=== PATIENT | male | born 1955 ===

== ENCOUNTER 2022-01-09 11:05 | Inpatient (IN) | payer MEDICARE, OTHER ==
[~2022-01-09] VITALS: Ht 172.7 cm; Wt 55.8 kg
[2022-01-09] MEDS ORDERED: SODIUM CHLORIDE 0.9% 1,000 ML IV ONE (11:45)
[2022-01-09 12:12] LABS: BASOPHILS % (AUTO) 0.2 % (0.0-2.0); EOSINOPHILS % (AUTO) 0 % (1.0-6.0); HEMOGLOBIN 18.7 g/dL (13.5-17.5); LYMPHOCYTES # (AUTO) 0.3 K/uL (1.0-4.8); LYMPHOCYTES % (AUTO) 2.3 % (22.0-44.0); MEAN CORPUSCULAR HEMOGLOBIN 30.1 pg (26.0-34.0); MEAN CORPUSCULAR HGB CONC 31.6 G/dL (31.0-37.0); MEAN CORPUSCULAR VOLUME 95 fL (80-100); MONOCYTES # (AUTO) 0.4 K/uL (0.1-1.0); MONOCYTES % (AUTO) 3.3 % (2.0-9.0); NEUTROPHILS # (AUTO) 11.3 K/uL (1.8-7.7); PLATELET COUNT (AUTO) 132 K/uL (150-450); RED CELL DISTRIBUTION WIDTH 15.8 % (11.5-14.5)
[2022-01-09 12:23] LABS: INR 1.4 (0.9-1.1); PROTHROMBIN TIME 14.9 SEC (9.4-11.6)
[2022-01-09 12:24] LABS: ANION GAP 27 mmol/L (8-16); CALCIUM, TOTAL 10.4 mg/dL (8.8-10.5); CARBON DIOXIDE 21 mmol/L (22-29); CHLORIDE 133 mmol/L (98-107); CREATININE 8.81 mg/dL (0.60-1.30); GLOMERULAR FILTR. RATE CALC 5 mL/min (>60); GLUCOSE,RANDOM 231 mg/dL (70-110); POTASSIUM 5.2 mmol/L (3.5-5.1)
[2022-01-09 12:34] LABS: AMMONIA 70 umol/L (11-32)
[2022-01-09 12:46] LABS: ALANINE AMINOTRANSFERASE 29 U/L (12-78); ALBUMIN 4.6 g/dL (3.4-5.0); ALKALINE PHOSPHATASE 101 U/L (46-116); ASPARTATE AMINOTRANSFERASE 37 U/L (15-37); BILIRUBIN,TOTAL 0.9 mg/dL (0.1-1.0); CREATINE KINASE, TOTAL ONLY 455 U/L (39-308); TOTAL PROTEIN, SERUM 9.9 g/dL (6.4-8.2)
[2022-01-09 12:50] LABS: HEMATOCRIT 59.1 % (41-53); NEUTROPHILS % (AUTO) 94.2 % (40.0-70.0)
[2022-01-09 12:54] LABS: SODIUM SERUM 181 mmol/L (136-145)
[2022-01-09 12:55] LABS: UREA NITROGEN, BLOOD 277 mg/dL (7-18)
[2022-01-09 12:57] LABS: LACTIC ACID 4.9 mmol/L (0.4-2.0)
[2022-01-09] MEDS ORDERED: SODIUM CHLORIDE 0.9% 500 ML IV ONE (13:00)
[2022-01-09 14:12] LABS: APPEARANCE,URINE CLEAR (CLEAR); BILIRUBIN,URINE NEGATIVE (NEGATIVE); GLUCOSE, URINE (UA) NEGATIVE (NEGATIVE); KETONES,URINE NEGATIVE (NEGATIVE); LEUKOCYTE ESTERASE ,URINE NEGATIVE (NEGATIVE); NITRATE,URINE NEGATIVE (NEGATIVE); OCCULT BLOOD,URINE NEGATIVE (NEGATIVE); PROTEIN,URINE 30-70 mg/dL (NEGATIVE); SPECIFIC GRAVITIY, URINE 1.022 (1.003-1.030); UROBILINOGEN,URINE <=1.0 mg/dL (<=1.0)
[2022-01-09] MEDS ORDERED: DEXTROSE 5%-WATER 1,000 ML IV ONE (14:30)
[2022-01-09 14:33] LABS: AMPHET/METH SCREEN,URINE NEGATIVE (NEGATIVE); BARBITURATE SCREEN, URINE NEGATIVE (NEGATIVE); BENZODIAZEPINES SCREEN,URINE NEGATIVE (NEGATIVE); CANNABINOID SCREEN,URINE NEGATIVE (NEGATIVE); COCAINE SCREEN,URINE NEGATIVE (NEGATIVE); METHADONE SCREEN, URINE NEGATIVE (NEGATIVE); OPIATE SCREEN,URINE NEGATIVE (NEGATIVE); PHENCYCLIDINE SCREEN,URINE NEGATIVE (NEGATIVE)
[2022-01-09] MEDS ORDERED: BISACODYL 10 MG RECTAL RECTAL SUPPOSITORY PR PRN (15:00)
[2022-01-09] MEDS ORDERED: ONDANSETRON HCL 4 MG/2 ML VIAL IVP PRN (15:00)
[2022-01-09 16:32] LABS: CALCIUM, TOTAL 9.9 mg/dL (8.8-10.5); CREATININE 8.4 mg/dL (0.60-1.30); POTASSIUM 5.7 mmol/L (3.5-5.1)
[2022-01-09] MEDS: MVI, ADULT NO.1 WITH VIT K 10 ML in DEXTROSE 5%-WATER 1,000 ML IV SCH ×2 (19:24)
[2022-01-09 19:46] LABS: GLUCOMETER DEV NAME(LOC) ERT.5; GLUCOSE,POINT OF CARE 209 MG/DL (70-110)
[2022-01-09 20:45] LABS: MAGNESIUM 4.9 mg/dL (1.80-2.40)
[2022-01-09] MEDS: HEPARIN SODIUM,PORCINE 5,000 UNITS/ML VIAL SQ SCH (20:48)
[2022-01-09 21:03] LABS: COVID AG,FIA SOURCE NASAL SWAB
[2022-01-09 21:05] LABS: PHOSPHORUS 10.6 mg/dL (2.5-4.9)
[2022-01-10] VITALS (8 sets, daily range): BP systolic 78–189; BP diastolic 49–121
[2022-01-10] MEDS: NITROGLYCERIN 2% (1 GM=INCH) PACKET TP SCH ×3 (02:59→16:00)
[2022-01-10] MEDS: MVI, ADULT NO.1 WITH VIT K 10 ML in DEXTROSE 5%-WATER 1,000 ML IV SCH ×6 (04:26→20:48)
[2022-01-10] MEDS: INSULIN LISPRO 100 UNITS/ML SQ PRN ×2 (06:34→21:27)
[2022-01-10 08:16] LABS: BASOPHILS % (AUTO) 0.1 % (0.0-2.0); EOSINOPHILS % (AUTO) 0 % (1.0-6.0); HEMATOCRIT 53.5 % (41-53); HEMOGLOBIN 16.9 g/dL (13.5-17.5); LYMPHOCYTES # (AUTO) 0.3 K/uL (1.0-4.8); LYMPHOCYTES % (AUTO) 2.1 % (22.0-44.0); MEAN CORPUSCULAR HEMOGLOBIN 30.1 pg (26.0-34.0); MEAN CORPUSCULAR HGB CONC 31.6 G/dL (31.0-37.0); MEAN CORPUSCULAR VOLUME 95 fL (80-100); MONOCYTES # (AUTO) 0.8 K/uL (0.1-1.0); MONOCYTES % (AUTO) 4.7 % (2.0-9.0); NEUTROPHILS # (AUTO) 15.2 K/uL (1.8-7.7); RED BLOOD CELL COUNT(AUTO) 5.62 MIL/uL (4.50-5.90); RED CELL DISTRIBUTION WIDTH 15.1 % (11.5-14.5)
[2022-01-10 08:21] LABS: NEUTROPHILS % (AUTO) 93.1 % (40.0-70.0)
[2022-01-10 08:22] LABS: CALCIUM, TOTAL 9.7 mg/dL (8.8-10.5); CREATININE 8.31 mg/dL (0.60-1.30); POTASSIUM 4.7 mmol/L (3.5-5.1)
[2022-01-10 08:34] LABS: PLATELET COUNT (AUTO) 80 K/uL (150-450); PLATELET MORPHOLOGY COMMENT LARGE PLTS PRESENT
[2022-01-10] MEDS: HEPARIN SODIUM,PORCINE 5,000 UNITS/ML VIAL SQ SCH ×2 (08:53→20:48)
[2022-01-10] MEDS ORDERED: MIDAZOLAM HCL 2 MG/2 ML VIAL IVP ONE (09:00)
[2022-01-10] MEDS ORDERED: FentaNYL CITRATE PF 100 MCG/2 ML VIAL IVP ONE (09:00)
[2022-01-10 09:25] LABS: GLUCOMETER DEV NAME(LOC) AHU.; GLUCOSE,POINT OF CARE 218 MG/DL (70-110)
[2022-01-10 18:20] LABS: HEMOGLOBIN 14.4 g/dL (13.5-17.5); MONOCYTES # (AUTO) 0.7 K/uL (0.1-1.0); PLATELET COUNT (AUTO) 78 K/uL (150-450)
[2022-01-10 18:24] LABS: BASOPHILS % (AUTO) 0.1 % (0.0-2.0); EOSINOPHILS % (AUTO) 0.2 % (1.0-6.0); HEMATOCRIT 45.5 % (41-53); LYMPHOCYTES # (AUTO) 0.4 K/uL (1.0-4.8); LYMPHOCYTES % (AUTO) 3.3 % (22.0-44.0); MEAN CORPUSCULAR HEMOGLOBIN 29.7 pg (26.0-34.0); MEAN CORPUSCULAR HGB CONC 31.6 G/dL (31.0-37.0); MEAN CORPUSCULAR VOLUME 94 fL (80-100); MONOCYTES % (AUTO) 5.2 % (2.0-9.0); NEUTROPHILS # (AUTO) 11.8 K/uL (1.8-7.7); RED BLOOD CELL COUNT(AUTO) 4.84 MIL/uL (4.50-5.90)
[2022-01-10 18:43] LABS: NEUTROPHILS % (AUTO) 91.2 % (40.0-70.0)
[2022-01-10 18:44] LABS: PLATELET MORPHOLOGY COMMENT LARGE PLTS PRESENT
[2022-01-10] MEDS ORDERED: NOREPINEPHRINE 4 MG/D5%-WATER 250 ML IV ONE (19:09)
[2022-01-10] MEDS ORDERED: NOREPINEPHRINE 4 MG/D5%-WATER 250 ML IV PRN (19:15)
[2022-01-10] MEDS ORDERED: VECURONIUM BROMIDE 10 MG/VIAL IVP ONE (19:15)
[2022-01-10] MEDS ORDERED: ETOMIDATE 2 MG/ML 10 ML VIAL IVP ONE (19:15)
[2022-01-10] MEDS: FentaNYL CIT 1000MCG/0.9% NACL 100 ML IV PRN (19:20)
[2022-01-10] MEDS: PROPOFOL 1000 MG/ISO-OSM 100 ML IV PRN (19:21)
[2022-01-10 19:37] LABS: ABG OXYGEN SATURATION 99.9 % (95.0-98.0); SOURCE, BLOOD GAS ARTERIAL; TEMPERATURE, FAHRENHEIT, BG 96.2 FAHREN (96.0-98.6)
[2022-01-10 19:40] LABS: ABG BASE EXCESS -9.5 mmol/L (-2.0-3.0); ABG CARBOXYHEMOGLOBIN 0.7 % (0.0-1.5); ABG HCO3 18.1 mmol/L (22.0-26.0); ABG OXYGEN CONTENT 23.5 mL/dL (15.0-23.0); ABG OXYHEMOGLOBIN 99.2 % (94.0-100.0); ABG PCO2 30 mmHg (35-45); ABG PH 7.345 (7.35-7.450); PO2, ARTERIAL BG 446.2 mmHg (66.0-74.0)
[2022-01-10 19:41] LABS: O2 DEVICE,BLOOD GAS VENTILATOR (ROOM AIR); PEEP,BG 5 cm H2O; SITE, BLOOD GAS RT RADIAL; SPONTANEOUS VT, BG 391 ml; VT, ABG 400 ml
[2022-01-11] VITALS (15 sets, daily range): BP systolic 86–176; BP diastolic 50–86
[2022-01-11] MEDS: PROPOFOL 1000 MG/ISO-OSM 100 ML IV PRN (00:45)
[2022-01-11 02:06] LABS: GLUCOSE,POINT OF CARE 217 MG/DL (70-110)
[2022-01-11] MEDS: MVI, ADULT NO.1 WITH VIT K 10 ML in DEXTROSE 5%-WATER 1,000 ML IV SCH ×4 (05:22→14:59)
[2022-01-11] MEDS: INSULIN LISPRO 100 UNITS/ML SQ PRN (06:06)
[2022-01-11 06:29] LABS: CALCIUM, TOTAL 9.3 mg/dL (8.8-10.5); CREATININE 8.2 mg/dL (0.60-1.30); POTASSIUM 4.8 mmol/L (3.5-5.1)
[2022-01-11 06:36] LABS: BASOPHILS % (AUTO) 0.1 % (0.0-2.0); EOSINOPHILS % (AUTO) 0.7 % (1.0-6.0); HEMOGLOBIN 14.5 g/dL (13.5-17.5); LYMPHOCYTES # (AUTO) 0.6 K/uL (1.0-4.8); LYMPHOCYTES % (AUTO) 5.1 % (22.0-44.0); MEAN CORPUSCULAR HEMOGLOBIN 30.1 pg (26.0-34.0); MEAN CORPUSCULAR HGB CONC 32.1 G/dL (31.0-37.0); MEAN CORPUSCULAR VOLUME 94 fL (80-100); MONOCYTES # (AUTO) 0.8 K/uL (0.1-1.0); MONOCYTES % (AUTO) 6.7 % (2.0-9.0); NEUTROPHILS # (AUTO) 10.2 K/uL (1.8-7.7); PLATELET COUNT (AUTO) 68 K/uL (150-450); RED CELL DISTRIBUTION WIDTH 15.1 % (11.5-14.5)
[2022-01-11 06:38] LABS: NEUTROPHILS % (AUTO) 87.4 % (40.0-70.0)
[2022-01-11 06:49] LABS: PLATELET MORPHOLOGY COMMENT LARGE PLTS PRESENT
[2022-01-11 07:11] LABS: GLUCOMETER DEV NAME(LOC) AHU.; GLUCOSE,POINT OF CARE 231 MG/DL (70-110)
[2022-01-11] MEDS: NITROGLYCERIN 2% (1 GM=INCH) PACKET TP SCH ×2 (08:00)
[2022-01-11] MEDS: PANTOPRAZOLE SODIUM 40 MG/VIAL IVP SCH ×2 (08:58→09:14)
[2022-01-11] MEDS: ETHYL ALCOHOL 62% ANTISEPTIC NASAL SANITIZER 0.6 ML AMPUL NASAL SCH ×2 (08:58→23:18)
[2022-01-11] MEDS: HEPARIN SODIUM,PORCINE 5,000 UNITS/ML VIAL SQ SCH (08:59)
[2022-01-11 09:01] LABS: GLUCOSE,POINT OF CARE 143 MG/DL (70-110)
[2022-01-11] MEDS ORDERED: SODIUM CHLORIDE 0.9% 2,000 ML ONE (10:39)
[2022-01-11 11:51] LABS: GLUCOSE,POINT OF CARE 116 MG/DL (70-110)
[2022-01-11] MEDS ORDERED: SODIUM CHLORIDE 0.9% 500 ML IV ONE (11:59)
[2022-01-11] MEDS ORDERED: HEPARIN SODIUM,PORCINE 1,000 UNITS/ML VIAL IVP ONE (12:00)
[2022-01-11] MEDS ORDERED: VECURONIUM BROMIDE 10 MG/VIAL ONE (12:10)
[2022-01-11] MEDS ORDERED: VECURONIUM BROMIDE 10 MG/VIAL IVP ONE (12:45)
[2022-01-11 13:43] LABS: ABG BASE EXCESS -8.1 mmol/L (-2.0-3.0); ABG CARBOXYHEMOGLOBIN 0.4 % (0.0-1.5); ABG HCO3 19.9 mmol/L (22.0-26.0); ABG METHEMOGLOBIN 0.3 % (0.0-1.5); ABG OXYGEN CONTENT 24.1 mL/dL (15.0-23.0); ABG OXYGEN SATURATION 99.1 % (95.0-98.0); ABG OXYHEMOGLOBIN 98.4 % (94.0-100.0); ABG PCO2 24 mmHg (35-45); ABG TOTAL HEMOGLOBIN 17.3 G/dL (12.0-18.0); PO2, ARTERIAL BG 142.1 mmHg (66.0-74.0); SOURCE, BLOOD GAS ARTERIAL; TEMPERATURE, FAHRENHEIT, BG 98.1 FAHREN (96.0-98.6)
[2022-01-11 13:44] LABS: ABG A-A DIFF O2 43.6 mmHg (10-20.0); O2 DEVICE,BLOOD GAS VENTILATOR (ROOM AIR); PEEP,BG 5 cm H2O; SITE, BLOOD GAS ARTERIAL LINE; SPONTANEOUS VT, BG 557 ml; VT, ABG 400 ml
[2022-01-11 18:01] LABS: GLUCOSE,POINT OF CARE 163 MG/DL (70-110)
[2022-01-11] MEDS: NOREPINEPHRINE BITARTRATE 8 MG in DEXTROSE 5%-WATER 242 ML IV PRN (19:31)
[2022-01-12] VITALS (10 sets, daily range): BP systolic 93–132; BP diastolic 27–59
[2022-01-12 01:36] LABS: GLUCOSE,POINT OF CARE 89 MG/DL (70-110)
[2022-01-12] MEDS: PROPOFOL 1000 MG/ISO-OSM 100 ML IV PRN (03:34)
[2022-01-12] MEDS: FentaNYL CIT 1000MCG/0.9% NACL 100 ML IV PRN ×2 (03:34→23:31)
[2022-01-12] MEDS: MVI, ADULT NO.1 WITH VIT K 10 ML in DEXTROSE 5%-WATER 1,000 ML IV SCH ×2 (04:09)
[2022-01-12 05:38] LABS: CALCIUM, TOTAL 8.3 mg/dL (8.8-10.5); CREATININE 6.32 mg/dL (0.60-1.30); POTASSIUM 5.2 mmol/L (3.5-5.1)
[2022-01-12 06:11] LABS: GLUCOSE,POINT OF CARE 137 MG/DL (70-110)
[2022-01-12] MEDS: PANTOPRAZOLE SODIUM 40 MG/VIAL IVP SCH (08:25)
[2022-01-12] MEDS: ETHYL ALCOHOL 62% ANTISEPTIC NASAL SANITIZER 0.6 ML AMPUL NASAL SCH ×2 (09:00→20:54)
[2022-01-12 10:24] LABS: BASOPHILS % (AUTO) 0.3 % (0.0-2.0); EOSINOPHILS % (AUTO) 0.4 % (1.0-6.0); HEMATOCRIT 42.5 % (41-53); HEMOGLOBIN 14.1 g/dL (13.5-17.5); LYMPHOCYTES # (AUTO) 0.2 K/uL (1.0-4.8); LYMPHOCYTES % (AUTO) 1.7 % (22.0-44.0); MEAN CORPUSCULAR HEMOGLOBIN 30.3 pg (26.0-34.0); MEAN CORPUSCULAR HGB CONC 33.1 G/dL (31.0-37.0); MEAN CORPUSCULAR VOLUME 91 fL (80-100); MONOCYTES # (AUTO) 0.7 K/uL (0.1-1.0); MONOCYTES % (AUTO) 5.9 % (2.0-9.0); NEUTROPHILS # (AUTO) 10.5 K/uL (1.8-7.7); PLATELET COUNT (AUTO) 51 K/uL (150-450); RED BLOOD CELL COUNT(AUTO) 4.65 MIL/uL (4.50-5.90)
[2022-01-12 10:26] LABS: NEUTROPHILS % (AUTO) 91.7 % (40.0-70.0)
[2022-01-12] MEDS ORDERED: ALTEPLASE 2 MG VIAL IVCATH ONE ×2 (10:30)
[2022-01-12] MEDS: INSULIN LISPRO 100 UNITS/ML SQ PRN ×2 (12:26→23:33)
[2022-01-12 12:42] LABS: GLUCOSE,POINT OF CARE 153 MG/DL (70-110)
[2022-01-12 18:36] LABS: GLUCOSE,POINT OF CARE 140 MG/DL (70-110)
[2022-01-13] VITALS (14 sets, daily range): BP systolic 89–136; BP diastolic 39–64
[2022-01-13 04:35] LABS: GLUCOMETER DEV NAME(LOC) AHU.; GLUCOSE,POINT OF CARE 167 MG/DL (70-110)
[2022-01-13 05:09] LABS: BASOPHILS % (AUTO) 0.1 % (0.0-2.0); EOSINOPHILS % (AUTO) 0 % (1.0-6.0); HEMATOCRIT 38.7 % (41-53); HEMOGLOBIN 13.3 g/dL (13.5-17.5); LYMPHOCYTES # (AUTO) 0.2 K/uL (1.0-4.8); LYMPHOCYTES % (AUTO) 2.7 % (22.0-44.0); MEAN CORPUSCULAR HEMOGLOBIN 30.6 pg (26.0-34.0); MEAN CORPUSCULAR HGB CONC 34.4 G/dL (31.0-37.0); MEAN CORPUSCULAR VOLUME 89 fL (80-100); MONOCYTES # (AUTO) 0.9 K/uL (0.1-1.0); MONOCYTES % (AUTO) 15.1 % (2.0-9.0); NEUTROPHILS # (AUTO) 4.8 K/uL (1.8-7.7); NEUTROPHILS % (AUTO) 82.1 % (40.0-70.0); PLATELET COUNT (AUTO) 53 K/uL (150-450); RED BLOOD CELL COUNT(AUTO) 4.35 MIL/uL (4.50-5.90)
[2022-01-13 05:21] LABS: CALCIUM, TOTAL 8.3 mg/dL (8.8-10.5); MAGNESIUM 2.2 mg/dL (1.80-2.40)
[2022-01-13] MEDS: INSULIN LISPRO 100 UNITS/ML SQ PRN ×2 (05:33→17:46)
[2022-01-13 05:36] LABS: CREATININE 6.72 mg/dL (0.60-1.30); PHOSPHORUS 9.4 mg/dL (2.5-4.9); POTASSIUM 5.1 mmol/L (3.5-5.1)
[2022-01-13] MEDS: PANTOPRAZOLE SODIUM 40 MG/VIAL IVP SCH (08:30)
[2022-01-13] MEDS: ETHYL ALCOHOL 62% ANTISEPTIC NASAL SANITIZER 0.6 ML AMPUL NASAL SCH ×2 (08:30→21:34)
[2022-01-13] MEDS: DEXMEDETOMIDINE HCL 400 MCG in SODIUM CHLORIDE 0.9% 96 ML IV PRN (10:29)
[2022-01-13] MEDS: ACETAMINOPHEN 325 MG TABLET PO PRN (11:34)
[2022-01-13] MEDS ORDERED: PHENYLEPHRINE 200 MG/D5%-WATER 250 ML IV PRN (13:00)
[2022-01-13 13:46] LABS: GLUCOMETER DEV NAME(LOC) AHU.; GLUCOSE,POINT OF CARE 161 MG/DL (70-110)
[2022-01-13 13:46] LABS: GLUCOSE,POINT OF CARE 124 MG/DL (70-110)
[2022-01-13 15:42] LABS: HEMATOCRIT 38.6 % (41-53); HEMOGLOBIN 12.9 g/dL (13.5-17.5)
[2022-01-13 15:47] LABS: OCCULT BLOOD STOOL SINGLE ONLY POSITIVE (NEGATIVE)
[2022-01-13] MEDS: NOREPINEPHRINE BITARTRATE 8 MG in DEXTROSE 5%-WATER 242 ML IV PRN (16:27)
[2022-01-13] MEDS ORDERED: HEPARIN SODIUM,PORCINE 1,000 UNITS/ML VIAL ONE (16:31)
[2022-01-13 16:50] LABS: C.DIFF GDH ANTIGEN, Stool Negative (Negative); C.DIFF TOXINS A&B, Stool Negative (Negative)
[2022-01-13 20:16] LABS: GLUCOSE,POINT OF CARE 175 MG/DL (70-110)
[2022-01-14] VITALS: BP 164/72
[2022-01-14] MEDS: VASOPRESSIN 40 UNITS in DEXTROSE 5%-WATER 98 ML IV PRN (02:33)
[2022-01-14] MEDS: DEXMEDETOMIDINE HCL 400 MCG in SODIUM CHLORIDE 0.9% 96 ML IV PRN (03:35)
[2022-01-14 04:00] VITALS: BP 140/64
[2022-01-14] MEDS: INSULIN LISPRO 100 UNITS/ML SQ PRN (05:18)
[2022-01-14 05:22] LABS: HEMATOCRIT 36.5 % (41-53); HEMOGLOBIN 12.4 g/dL (13.5-17.5); MEAN CORPUSCULAR HEMOGLOBIN 30.2 pg (26.0-34.0); MEAN CORPUSCULAR HGB CONC 33.9 G/dL (31.0-37.0); MEAN CORPUSCULAR VOLUME 89 fL (80-100); PLATELET COUNT (AUTO) 78 K/uL (150-450); RED CELL DISTRIBUTION WIDTH 14.3 % (11.5-14.5)
[2022-01-14 05:30] LABS: ALBUMIN 2.2 g/dL (3.4-5.0); CALCIUM, TOTAL 8.2 mg/dL (8.8-10.5); CREATININE 4.86 mg/dL (0.60-1.30); MAGNESIUM 2.3 mg/dL (1.80-2.40); PHOSPHORUS 8.4 mg/dL (2.5-4.9); POTASSIUM 4.6 mmol/L (3.5-5.1); TOTAL PROTEIN, SERUM 6.6 g/dL (6.4-8.2)
[2022-01-14 05:48] LABS: BAND NEUTROPHILS % (MANUAL) 35 % (0-5); EOSINOPHILS % (MANUAL) 1 % (1-6); LYMPHOCYTES % (MANUAL) 5 % (22-44); METAMYELOCYTES % 2 % (0-0); MONOCYTES % (MANUAL) 12 % (2-9); PLATELET MORPHOLOGY COMMENT LARGE PLTS PRESENT; SEGMENTED NEUTROPHILS % 45 % (40-70); WBC MORPHOLOGY TOXIC GRANULATION
[2022-01-14 07:56] LABS: GLUCOSE,POINT OF CARE 144 MG/DL (70-110)
[2022-01-14 08:00] VITALS: BP 139/77
[2022-01-14] MEDS: ETHYL ALCOHOL 62% ANTISEPTIC NASAL SANITIZER 0.6 ML AMPUL NASAL SCH ×2 (09:04→20:35)
[2022-01-14] MEDS: PANTOPRAZOLE SODIUM 40 MG/VIAL IVP SCH (09:05)
[2022-01-14 12:31] VITALS: BP 129/64
[2022-01-14 16:00] VITALS: BP 123/90
[2022-01-14 19:36] LABS: GLUCOMETER DEV NAME(LOC) AHU.; GLUCOSE,POINT OF CARE 105 MG/DL (70-110)
[2022-01-14] MEDS: PANTOPRAZOLE SODIUM 80 MG in SODIUM CHLORIDE 0.9% 100 ML IV SCH (19:38)
[2022-01-14 20:00] VITALS: BP 186/102
[2022-01-15] VITALS (15 sets, daily range): BP systolic 67–213; BP diastolic 28–147
[2022-01-15 00:31] LABS: GLUCOSE,POINT OF CARE 128 MG/DL (70-110)
[2022-01-15] MEDS: PANTOPRAZOLE SODIUM 80 MG in SODIUM CHLORIDE 0.9% 100 ML IV SCH ×2 (04:15→14:53)
[2022-01-15] MEDS: DEXMEDETOMIDINE HCL 400 MCG in SODIUM CHLORIDE 0.9% 96 ML IV PRN ×2 (05:37→21:10)
[2022-01-15 05:44] LABS: CALCIUM, TOTAL 8.4 mg/dL (8.8-10.5); CREATININE 6.4 mg/dL (0.60-1.30); MAGNESIUM 2.6 mg/dL (1.80-2.40); PHOSPHORUS 8.3 mg/dL (2.5-4.9); POTASSIUM 4.7 mmol/L (3.5-5.1)
[2022-01-15 06:07] LABS: GLUCOSE,POINT OF CARE 124 MG/DL (70-110)
[2022-01-15 08:35] LABS: GLUCOSE,POINT OF CARE 107 MG/DL (70-110)
[2022-01-15] MEDS: ETHYL ALCOHOL 62% ANTISEPTIC NASAL SANITIZER 0.6 ML AMPUL NASAL SCH ×2 (09:52→21:09)
[2022-01-15] MEDS: PIPERACILLIN SODIUM/TAZOBACTAM 2.25 GM in DEXTROSE 5%-WATER 50 ML IV SCH ×2 (09:59→17:20)
[2022-01-15] MEDS ORDERED: SODIUM CHLORIDE 0.9% 250 ML IV ONE (10:24)
[2022-01-15] MEDS ORDERED: HEPARIN SODIUM,PORCINE 1,000 UNITS/ML VIAL IVCATH ONE ×2 (16:15)
[2022-01-15] MEDS: SODIUM CHLORIDE 0.45% 1,000 ML IV SCH (17:18)
[2022-01-15] MEDS ORDERED: HEPARIN SODIUM,PORCINE 1,000 UNITS/ML VIAL ONE (17:22)
[2022-01-15] MEDS: ACETAMINOPHEN 325 MG TABLET PO PRN ×2 (17:32→22:26)
[2022-01-15] MEDS: DEXTROSE 50%-WATER 25 GM/50 ML SYRINGE IVP PRN (18:33)
[2022-01-15 19:11] LABS: GLUCOMETER DEV NAME(LOC) AHU.; GLUCOSE,POINT OF CARE 206 MG/DL (70-110)
[2022-01-15 19:11] LABS: GLUCOMETER DEV NAME(LOC) AHU.; GLUCOSE,POINT OF CARE 69 MG/DL (70-110)
[2022-01-15] MEDS: NOREPINEPHRINE BITARTRATE 8 MG in DEXTROSE 5%-WATER 242 ML IV PRN (22:09)
[2022-01-15] MEDS ORDERED: VANCOMYCIN 1GM/WATER(PEG/NADA) 200 ML IV PRN (22:30)
[2022-01-15] MEDS ORDERED: VANCOMYCIN HCL 1.25 GM in DEXTROSE 5%-WATER 250 ML IV ONE (23:00)
[2022-01-16] VITALS: BP 90/49
[2022-01-16] MEDS: PANTOPRAZOLE SODIUM 80 MG in SODIUM CHLORIDE 0.9% 100 ML IV SCH ×2 (00:41→12:52)
[2022-01-16 01:11] LABS: GLUCOMETER DEV NAME(LOC) AHU.; GLUCOSE,POINT OF CARE 131 MG/DL (70-110)
[2022-01-16 04:00] VITALS: BP 92/46
[2022-01-16] MEDS: PIPERACILLIN SODIUM/TAZOBACTAM 2.25 GM in DEXTROSE 5%-WATER 50 ML IV SCH ×3 (04:23→18:00)
[2022-01-16] MEDS ORDERED: SODIUM CHLORIDE 0.9% 250 ML IV ONE (04:38)
[2022-01-16 05:38] LABS: EOSINOPHILS % (AUTO) 0.3 % (1.0-6.0); HEMATOCRIT 34.7 % (41-53); HEMOGLOBIN 11.4 g/dL (13.5-17.5); LYMPHOCYTES # (AUTO) 0.1 K/uL (1.0-4.8); LYMPHOCYTES % (AUTO) 1.4 % (22.0-44.0); MEAN CORPUSCULAR HGB CONC 32.9 G/dL (31.0-37.0); MEAN CORPUSCULAR VOLUME 91 fL (80-100); MONOCYTES # (AUTO) 0.2 K/uL (0.1-1.0); MONOCYTES % (AUTO) 2.4 % (2.0-9.0); NEUTROPHILS # (AUTO) 8.9 K/uL (1.8-7.7); NEUTROPHILS % (AUTO) 95.9 % (40.0-70.0); PLATELET COUNT (AUTO) 94 K/uL (150-450); RED CELL DISTRIBUTION WIDTH 14.6 % (11.5-14.5)
[2022-01-16 05:47] LABS: ALBUMIN 1.6 g/dL (3.4-5.0); BILIRUBIN,TOTAL 1.1 mg/dL (0.1-1.0); CALCIUM, TOTAL 7.5 mg/dL (8.8-10.5); CREATININE 4.79 mg/dL (0.60-1.30); POTASSIUM 5.5 mmol/L (3.5-5.1); TOTAL PROTEIN, SERUM 5.4 g/dL (6.4-8.2)
[2022-01-16] MEDS: NOREPINEPHRINE BITARTRATE 8 MG in DEXTROSE 5%-WATER 242 ML IV PRN ×2 (06:30→15:45)
[2022-01-16 08:00] VITALS: BP 116/64
[2022-01-16 08:00] LABS: GLUCOSE,POINT OF CARE 122 MG/DL (70-110)
[2022-01-16] MEDS: ETHYL ALCOHOL 62% ANTISEPTIC NASAL SANITIZER 0.6 ML AMPUL NASAL SCH (09:51)
[2022-01-16] MEDS ORDERED: SODIUM ZIRCONIUM CYCLOSILICATE 5 GM POWDER PACKET PO ONE (11:00)
[2022-01-16] MEDS: DEXTROSE 50%-WATER 25 GM/50 ML SYRINGE IVP PRN ×2 (11:41→16:04)
[2022-01-16] MEDS: SODIUM CHLORIDE 0.45% 1,000 ML IV SCH (11:42)
[2022-01-16 12:00] VITALS: BP 113/63
[2022-01-16 12:16] LABS: GLUCOSE,POINT OF CARE 66 MG/DL (70-110)
[2022-01-16 13:17] LABS: GLUCOSE,POINT OF CARE 171 MG/DL (70-110)
[2022-01-16] MEDS: DEXMEDETOMIDINE HCL 400 MCG in SODIUM CHLORIDE 0.9% 96 ML IV PRN (14:37)
[2022-01-16 15:49] LABS: CALCIUM, TOTAL 7.7 mg/dL (8.8-10.5); CREATININE 5.51 mg/dL (0.60-1.30)
[2022-01-16 15:51] LABS: POTASSIUM 7.4 mmol/L (3.5-5.1)
[2022-01-16] MEDS ORDERED: CALCIUM GLUCONATE 100 MG/ML 10 ML IVP ONE ×2 (15:56→16:00)
[2022-01-16] MEDS ORDERED: SODIUM BICARBONATE [ADULT] 8.4% 50 MEQ/50 ML SYRINGE IVP ONE ×2 (15:57→16:00)
[2022-01-16 16:00] VITALS: BP 76/46
[2022-01-16] MEDS ORDERED: INSULIN REGULAR, HUMAN 100 UNITS/ML IVP ONE (16:00)
[2022-01-16] MEDS ORDERED: SODIUM CHLORIDE 0.9% 2,000 ML ONE (17:52)
[2022-01-16 19:07] VITALS: BP 106/60
[2022-01-16] MEDS: VASOPRESSIN 40 UNITS in DEXTROSE 5%-WATER 98 ML IV PRN (19:07)
== END 2022-01-16 19:30 | DRG 682 ==
LOC: EMS 11:05 → ICU 14:47 → EDBD 14:47
PROVIDERS: ADMIT Internal Medicine; ATTEND Internal Medicine
PROC: 5A1955Z Respiratory Ventilation, Greater than 96 Consecutive Hours (ICD-10-PCS; principal; 2022-01-10)
PROC: 0BH17EZ Insertion of Endotracheal Airway into Trachea, Via Natural or Artificial Opening (ICD-10-PCS; 2022-01-10)
PROC: 05HA33Z Insertion of Infusion Device into Left Brachial Vein, Percutaneous Approach (ICD-10-PCS; 2022-01-10)
PROC: B54NZZA Ultrasonography of Left Upper Extremity Veins, Guidance (ICD-10-PCS; 2022-01-10)
DX: N17.0 Acute kidney failure with tubular necrosis (principal); J96.00 Acute respiratory failure, unspecified whether with hypoxia or hypercapnia; G93.41 Metabolic encephalopathy; E43 Unspecified severe protein-calorie malnutrition; E87.0 Hyperosmolality and hypernatremia; E87.1 Hypo-osmolality and hyponatremia; E87.2 Acidosis; I42.9 Cardiomyopathy, unspecified; Z99.11 Dependence on respirator [ventilator] status; K92.2 Gastrointestinal hemorrhage, unspecified; Z66 Do not resuscitate; E86.0 Dehydration; D75.1 Secondary polycythemia; E87.5 Hyperkalemia; Z59.00 Homelessness unspecified; Z20.822 Contact with and (suspected) exposure to COVID-19; D64.9 Anemia, unspecified; E11.22 Type 2 diabetes mellitus with diabetic chronic kidney disease; E11.65 Type 2 diabetes mellitus with hyperglycemia; E83.39 Other disorders of phosphorus metabolism; E83.41 Hypermagnesemia; I25.10 Atherosclerotic heart disease of native coronary artery without angina pectoris; I46.9 Cardiac arrest, cause unspecified; I50.9 Heart failure, unspecified; N18.9 Chronic kidney disease, unspecified; D69.6 Thrombocytopenia, unspecified
CPT/HCPCS: 36245; 36569; 36600; 51702; 70450; 71045; 74018; 76770; 76937; 80048; 80053; 81003; 82140; 82271; 82550; 82805; 82962; 83010; 83605; 83615; 83735; 84100; 84145; 84295; 84484; 85014; 85018; 85025; 85045; 85610; 87040; 87070; 87077; 87081; 87205; 87324; 87340; 87449; 90935; 93005; 93308; 93970; 94002; 94003; 95816; 99291; C9113; G0378; J0610; J1644; J1815; J2250; J2370; J2543; J2704; J2997; J3010; J3370; J3490; J7030; J7040; J7050; J7060; Q9967; 36415-L1; 36415-TC